=== PATIENT | female | born 1945 | race Caucasian/White ===

== ENCOUNTER 2021-09-02 12:21 | Outpatient (CLI) | payer MEDICARE | END 2021-09-02 12:22 | disposition home or self-care (01) | LOC: CSHMAMMO 12:21 | PROVIDERS: ATTEND Family Medicine | DX: Z12.31 Encounter for screening mammogram for malignant neoplasm of breast (principal) | CPT/HCPCS: 77063; 77067 ==

== ENCOUNTER 2024-06-19 11:43 | Outpatient (CLI) | payer MEDICARE | END 2024-06-19 11:44 | disposition home or self-care (01) | LOC: CSHMAMMO 11:43 | PROVIDERS: ATTEND Family Medicine | DX: Z12.31 Encounter for screening mammogram for malignant neoplasm of breast (principal) | CPT/HCPCS: 77063; 77067 ==